=== PATIENT | female | born 1955 | race Caucasian/White ===

== ENCOUNTER → 2024-02-14 09:04 | Outpatient (REF) | payer MEDICARE, OTHER, SELFPAY ==
[2024-02-14 10:22] LABS: % Basophils 0.5 % (0-2); % Eosinophils 4.1 % (0-6); % Immature Granulocytes 0.1 % (0-0.5); % Lymphocytes 22.1 % (20.5-51.1); % Monocytes 5.4 % (1.7-9.3); % Neutrophils 67.8 % (42.2-75.2); Absolute Eosinophils 0.3 10^3/uL (0-0.7); Absolute Lymphocytes 1.7 10^3/uL (1.2-3.4); Absolute Monocytes 0.4 10^3/uL (0.1-0.6); Absolute Neutrophils 5.1 10^3/uL (1.4-6.5); Mean Corp Hgb Conc. 34.1 g/dL (33.0-37.0); Mean Corpuscular Hgb 31.5 pg (27.0-31.0); Mean Corpuscular Volume 92.3 fL (81.0-99.0); Mean Platelet Volume 10.1 fL (7.4-10.4); Nucleated Red Blood Cells % 0 %; Platelet Count 332 10^3/uL (130-400); Red Blood Cell Count 4.44 10^6/uL (4.20-5.40); Red Cell Dist. Width 12.5 % (11.5-14.5); White Blood Cell Count 7.6 10^3/uL (4.8-10.8)
[2024-02-14 10:50] LABS: ALT (SGPT) 37 U/L (0-35); AST (SGOT) 32 U/L (14-36); Albumin 4.3 g/dl (3.5-5.0); Alkaline Phosphatase 88 U/L (38-126); Blood Urea Nitrogen 22 mg/dl (7-17); Calcium 9.9 mg/dl (8.4-10.2); Carbon Dioxide 28 mmol/L (22-30); Chloride 105 mmol/L (98-107); Cholesterol 198 mg/dl (50-199); Glucose 89 mg/dl (70-99); Potassium 4.7 mmol/L (3.5-5.1); Sodium 140 mmol/L (135-145); Total Bilirubin 0.9 mg/dl (0.2-1.3); Total Protein 7.3 g/dl (6.3-8.2); eGFR > 60.00
[2024-02-14 10:53] LABS: C-Reactive Protein < 5.00 mg/L (0.0-10.00)
[2024-02-14 11:10] LABS: Vitamin D, 25-OH*** 81.6 ng/mL (30-80)
[2024-02-15 09:39] LABS: CA 125 7.8 U/mL (0-35)
[2024-02-15 19:34] LABS: Homocysteine 9 umol/L (0-15)
== END ==
LOC: REG 09:04
PROVIDERS: ATTENDING PHYSICIAN Family Medicine
DX: I25.10 Atherosclerotic heart disease of native coronary artery without angina pectoris (principal); E78.00 Pure hypercholesterolemia, unspecified; E55.9 Vitamin D deficiency, unspecified; D72.829 Elevated white blood cell count, unspecified; N95.8 Other specified menopausal and perimenopausal disorders; R91.1 Solitary pulmonary nodule; I44.7 Left bundle-branch block, unspecified
CPT/HCPCS: 36415; 80053; 82306; 82465; 83090; 85025; 86140; 86304

== ENCOUNTER → 2024-03-03 14:29 | Outpatient (REF) | payer MEDICARE, OTHER, SELFPAY | LOC: RAD 14:29 | PROVIDERS: ATTENDING PHYSICIAN Obstetrics & Gynecology; FAMILY PHYSICIAN Family Medicine | DX: N83.201 Unspecified ovarian cyst, right side (principal) | CPT/HCPCS: 76830; 76856 ==

== ENCOUNTER → 2024-04-11 10:26 | Outpatient (REF) | payer MEDICARE, OTHER, SELFPAY ==
[2024-04-11 13:02] LABS: HDL Cholesterol 77 mg/dl; LDL Cholesterol, Calculated 105 mg/dl; Total Cholesterol 199 mg/dl (50-199); Triglyceride 86 mg/dl (10-149); Very Low Density Lipoprotein 17 mg/dl (0-30)
== END ==
LOC: REG 10:26
PROVIDERS: ATTENDING PHYSICIAN Internal Medicine Cardiovascular Disease; FAMILY PHYSICIAN Family Medicine
DX: E78.5 Hyperlipidemia, unspecified (principal)
CPT/HCPCS: 36415; 80061

== ENCOUNTER → 2024-10-28 09:21 | Outpatient (REF) | payer MEDICARE, OTHER, SELFPAY ==
[2024-10-28 10:15] LABS: ALT (SGPT) 40 U/L (0-35); AST (SGOT) 34 U/L (14-36); HDL Cholesterol 87 mg/dl; LDL Cholesterol, Calculated 93 mg/dl; Total Cholesterol 195 mg/dl (50-199); Triglyceride 75 mg/dl (10-149); Very Low Density Lipoprotein 15 mg/dl (0-30)
== END ==
LOC: REG 09:21
PROVIDERS: ATTENDING PHYSICIAN Internal Medicine Cardiovascular Disease; FAMILY PHYSICIAN Family Medicine
DX: I44.7 Left bundle-branch block, unspecified (principal); I25.10 Atherosclerotic heart disease of native coronary artery without angina pectoris; E78.5 Hyperlipidemia, unspecified
CPT/HCPCS: 36415; 80061; 84450; 84460

== ENCOUNTER → 2025-04-16 11:04 | Outpatient (REF) | payer MEDICARE, OTHER, SELFPAY ==
[2025-04-16 12:25] LABS: Hematocrit 41.0 % (37.0-47.0); Hemoglobin 13.9 g/dL (12.0-16.0); Mean Corp Hgb Conc. 33.9 g/dL (33.0-37.0); Mean Corpuscular Volume 95.1 fL (81.0-99.0); Nucleated Red Blood Cells % 0 %; Platelet Count 329 10^3/uL (130-400); Red Cell Dist. Width 13.4 % (11.5-14.5)
[2025-04-16 12:57] LABS: ALT (SGPT) 31 U/L (0-35); AST (SGOT) 30 U/L (14-36); Albumin 4.4 g/dl (3.5-5.0); Alkaline Phosphatase 74 U/L (38-126); Blood Urea Nitrogen 19 mg/dl (7-17); Calcium 9.7 mg/dl (8.4-10.2); Carbon Dioxide 29 mmol/L (22-30); Chloride 106 mmol/L (98-107); Glucose 83 mg/dl (70-99); HDL Cholesterol 84 mg/dl; LDL Cholesterol, Calculated 133 mg/dl; Magnesium 1.9 mg/dl (1.6-2.3); Potassium 4.5 mmol/L (3.5-5.1); Sodium 140 mmol/L (135-145); Total Protein 7.4 g/dl (6.3-8.2); Very Low Density Lipoprotein 17 mg/dl (0-30); eGFR > 60.00
[2025-04-16 13:14] LABS: Vitamin D, 25-OH*** 72.3 ng/mL (30-80)
[2025-04-16 19:22] LABS: CA 125 7.2 U/mL (0-35)
[2025-04-17 11:04] LABS: CRP, Ultra Sensitive 0.70 mg/L (0.30-5.00)
== END ==
LOC: REG 11:04
PROVIDERS: ATTENDING PHYSICIAN Family Medicine
DX: J84.9 Interstitial pulmonary disease, unspecified (principal); K22.719 Barrett's esophagus with dysplasia, unspecified; I25.10 Atherosclerotic heart disease of native coronary artery without angina pectoris; E78.00 Pure hypercholesterolemia, unspecified; J45.20 Mild intermittent asthma, uncomplicated; M81.0 Age-related osteoporosis without current pathological fracture; E55.9 Vitamin D deficiency, unspecified; Z85.43 Personal history of malignant neoplasm of ovary; N95.9 Unspecified menopausal and perimenopausal disorder
CPT/HCPCS: 36415; 80053; 80061; 82306; 83090; 83735; 85025; 86141; 86304

== ENCOUNTER → 2025-04-24 15:28 | Outpatient (REF) | payer MEDICARE, OTHER, SELFPAY | LOC: RAD 15:28 | PROVIDERS: ATTENDING PHYSICIAN Obstetrics & Gynecology; FAMILY PHYSICIAN Family Medicine | DX: N83.201 Unspecified ovarian cyst, right side (principal) | CPT/HCPCS: 76830; 76856 ==

== ENCOUNTER 2025-05-10 06:20 | Day surgery (SDC) | payer MEDICARE, OTHER, SELFPAY | END 2025-05-10 11:17 | disposition home or self-care (01) | LOC: GI 06:20 | PROVIDERS: ATTENDING PHYSICIAN Specialist; FAMILY PHYSICIAN Family Medicine | DX: R12 Heartburn (principal); K22.89 Other specified disease of esophagus | CPT/HCPCS: 43239; 88305 ==